=== PATIENT | female | born 1985 | race Caucasian/White ===

== ENCOUNTER 2017-03-27 21:01 | Emergency (ER) | payer OTHER, MEDICAID ==
[~2017-03-27] VITALS: Ht 144.8 cm; Wt 76.7 kg
[~2017-03-27 21:01] MED LIST: AUGMENTIN 875-1 EACH PO; AUGMENTIN 875875 MG PO; BACTRIM DS TAB1 EACH PO; CYMBALTA60 MG PO; FISH OIL 1,0001 EAC8 PO; MEDROXYPROGESTE10 MG PO; MUCINEX TA600 MG/TA2 PO; NORCO 5-325 TA1 EACH PO; ONDANSETRON HCL4 M2 PO; OXYCODONE HCL 55 MG PO; PREMARIN1.25 MG PO; ROXICODONE5 MG PO; TOPAMAX 100 MG100 MG PO; TRINATE TABLET1 TAB PO; VISTARIL 25 MG25 M1 PO; ZANAFLEX4 MG PO
[2017-03-27] MEDS ORDERED: NABUMETONE 750750 M1 PO (21:15)
[2017-03-27 23:15] VITALS: BP 143/68
== END 2017-03-27 23:15 | disposition home or self-care (01) ==
LOC: M.ERS 21:01
DX: S67.21XA Crushing injury of right hand, initial encounter (principal); F17.210 Nicotine dependence, cigarettes, uncomplicated; F10.99 Alcohol use, unspecified with unspecified alcohol-induced disorder; Z98.890 Other specified postprocedural states; Z88.5 Allergy status to narcotic agent; Z88.8 Allergy status to other drugs, medicaments and biological substances; W22.8XXA Striking against or struck by other objects, initial encounter; Y93.89 Activity, other specified; Y92.098 Other place in other non-institutional residence as the place of occurrence of the external cause; Y99.8 Other external cause status

== ENCOUNTER 2017-09-01 08:32 | Emergency (ER) | payer OTHER, MEDICAID ==
[~2017-09-01] VITALS: Ht 144.8 cm; Wt 78.9 kg
[~2017-09-01 08:32] MED LIST changes: +NABUMETONE 750750 M1 PO
[2017-09-01 08:40] VITALS: BP 137/90
[2017-09-01] MEDS ORDERED: TOBRAMYCIN SULFA5 ML OPHTHALMIC (08:44)
[2017-09-01] MEDS ORDERED: IBUPROFEN 800800 MG PO (08:44)
== END 2017-09-01 08:54 | disposition home or self-care (01) ==
LOC: M.ERS 08:32
DX: H01.005 Unspecified blepharitis left lower eyelid (principal); F17.210 Nicotine dependence, cigarettes, uncomplicated; Z88.5 Allergy status to narcotic agent; Z88.6 Allergy status to analgesic agent; Z88.7 Allergy status to serum and vaccine